=== PATIENT | male | born 1985 | race African-American/Black ===

== ENCOUNTER 2016-11-05 21:04 | Emergency (ER) | payer SELFPAY ==
[~2016-11-05] VITALS: Ht 175.3 cm; Wt 63.5 kg
[~2016-11-05 21:04] MED LIST: ALPRAZOLAM0.25 MG ORAL; ATIVAN1 MG ORAL; ATRIPLA TABLET1 EAC1 ORAL
[2016-11-05] MEDS ORDERED: NKM (21:29)
[2016-11-05 21:30] VITALS: BP 124/84
[2016-11-05] MEDS ORDERED: Ketorolac 30mg Inj IV ONE (21:45)
--- NOTE | 2016-11-05 21:47 | Emergency Room Report ---
History of Present Illness General Chief Complaint: Abdominal Pain Source: Patient Present Illness HPI This is a 31-year-old with a history of metamphetamine abuse. He presents with chief complaint of abdominal pain. Has been on and off for over 2 years. His been to multiple hospitals in his primary care Dr. Workup has been negative per patient. He presents with exacerbation abdominal pain ongoing for last 2 days. Localized the right lower quadrant and radiating to his testicles. Denies any fever chills denies any hematuria. Similar pain in the past. Pain is 10 out of 10. He is brought in by his mother. He had disappear for over a year he came home today. Patient denies any other complaint. No nausea no vomiting. Allergies: Coded Allergies: No Known Allergies (Unverified , 01/26/14) Patient History Past Medical History: see triage record, old chart reviewed Past Surgical History: none Pertinent Family History: none Social History: Reports: drug use, smoking Immunizations: other Reviewed Nursing Documentation: PMH: Agreed, PSxH: Agreed Nursing Documentation-PMH Hx Cancer: No - HIV Review of Systems Eye: Denies: blurred vision, eye pain ENT: Denies: ear pain, nose congestion, throat swelling Respiratory: Denies: cough, shortness of breath Cardiovascular: Denies: chest pain, palpitations Gastrointestinal: Reports: abdominal pain, Denies: diarrhea, nausea, vomiting Musculoskeletal: Denies: back pain, joint pain Skin: Denies: rash Neurological: Denies: headache, numbness Endocrine: Denies: increased thirst, increased urine Hematologic/Lymphatic: Denies: easy bruising All Other Systems: negative except mentioned in HPI Physical Exam Vital Signs Date Time Temp Pulse Resp B/P Pulse Ox O2 Delivery O2 Flow Rate FiO2 11/05/16 21:21 96.1 101 22 124/84 99 Room Air vitals normal Sp02 EP Interpretation: reviewed, normal General Appearance: well appearing, no apparent distress, alert, thin Head: normocephalic, atraumatic Eyes: bilateral eye EOMI, bilateral eye PERRL ENT: hearing grossly normal, normal pharynx Neck: full range of motion, supple, no meningismus Respiratory: chest non-tender, lungs clear, normal breath sounds Cardiovascular #1: regular rate, rhythm, no murmur Gastrointestinal: normal bowel sounds, no mass, no organomegaly, no bruit, non- distended, abnormal bowel sounds - Hyperactive, tenderness - Right lower quadrant Genitourinary: normal inspection, no CVA tenderness, no vertebral tenderness, penis normal, scrotum normal Musculoskeletal: back normal, gait/station normal, normal range of motion Neurologic: alert, oriented x3 Psychiatric: mood/affect normal Skin: warm/dry Medical Decision Making Diagnostic Impression: Primary Impression: Abdominal pain of unknown etiology Additional Impression: Methamphetamine abuse ER Course Followup with your in 7 days. Nitza out in 7 days. Return if worse. With abdominal pain. Labs unremarkable. He has not give a urine sample. I did not palpate a distended bladder. He said he urinated 2 hours prior to arrival. We'll discharge home with parents Lab Results Impression labs unremarkable CT/MRI/US Diagnostic Results CT/MRI/US Diagnostic Results : Imaging Test Ordered: ct abd and pelvis Impression read by radiologist. 3.4 right renal stone Last Vital Signs Date Time Temp Pulse Resp B/P Pulse Ox O2 Delivery O2 Flow Rate FiO2 11/05/16 21:21 96.1 101 22 124/84 99 Room Air Status: improved Disposition: HOME, SELF-CARE Condition: Stable Scripts Ibuprofen* (MOTRIN*) 600 Mg Tablet 600 MG ORAL THREE TIMES A DAY, #30 TAB 0 Refills Prov: MONY BURRIS M.D. 11/06/16 Patient Instructions: Abdominal Pain, Adult Additional Instructions: Followup with your in 2-3 days. Return if worse. MONY BURRIS M.D. Nov 05, 2016 21:47
[2016-11-05 22:16] LABS: BASOPHILS % (AUTO) 1.1 % (0.0-2.0); EOSINOPHILS % (AUTO) 2.9 % (0.0-3.0); LYMPHOCYTES % (AUTO) 42.8 % (20.0-45.0); MEAN CORPUSCULAR HEMOGLOBIN 29.8 PG (27.0-31.0); MEAN CORPUSCULAR VOLUME 90 FL (80-99); MEAN PLATELET VOLUME 8.1 FL (6.5-10.1); MONOCYTES % (AUTO) 9.8 % (1.0-10.0); NEUTROPHILS % (AUTO) 43.3 % (45.0-75.0); PLATELET COUNT 262 K/UL (150-450); RED BLOOD COUNT 4.91 M/UL (4.70-6.10); RED CELL DISTRIBUTION WIDTH 12.7 % (11.6-14.8)
[2016-11-05 22:38] LABS: ANION GAP 15 (5-15); CALCIUM 9.2 mg/dL (8.6-10.2); CARBON DIOXIDE 25 mEQ/L (20-30); CHLORIDE 99 mEQ/L (98-107); GLOMERULAR FILTRATION RATE > 60 mL/min (>60); HEMOLYSIS 5; POTASSIUM 3.8 mEQ/L (3.4-4.9); SODIUM 139 mEQ/L (135-145)
[2016-11-06] MEDS ORDERED: IBUPROFEN600 MG ORAL (00:09)
[2016-11-06 00:28] VITALS: BP 124/87
[2016-11-06 00:30] VITALS: BP 124/87
--- NOTE | 2016-11-06 10:02 | Diagnostic Imaging Report ---
Clinical Indication: Lower abdominal and pelvic pain Technique: No oral contrast utilized, per emergency room physician request IV administration nonionic contrast. Venous phase spiral acquisition obtained through the abdomen and pelvis. Multiplanar reconstructions were generated. Total dose length product 711 mGycm. CTDIvol(s) the mGy Comparison: None Findings: Evaluation of the GI tract is limited in the absence of oral contrast. The distal colon is moderately gas-filled, proximal colon moderately stool filled. No evidence of diverticulosis or diverticulitis. The appendix is not definitely identified, but no findings to suggest acute appendicitis are evident. The stomach is considerably distended. No definite obstructing lesion demonstrated, however. The duodenum is unremarkable. The distal esophagus is unremarkable. The liver is mildly enlarged. No focal abnormalities. Gallbladder, bile ducts, pancreas, spleen, adrenals, left kidney are unremarkable. There is a 4 mm calculus within the interpolar right renal collecting system. No retroperitoneal or mesenteric mass or adenopathy. No pelvic mass or adenopathy. The included lung bases are clear. 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 Impression: Considerable gastric distention. May reflect recent ingestion of considerable food, gastroparesis or gastric outlet obstruction not excludable, however. Possible mild constipation No other acute process 4 mm right intrarenal nonobstructing calculus This agrees with the preliminary interpretation provided overnight by [facility] service. The CT scanner at [facility] is accredited by the [employer] and the scans are performed using protocols designed to limit radiation exposure to as low as reasonably achievable to attain images of sufficient resolution adequate for diagnostic evaluation.
== END 2016-11-06 00:30 | disposition home or self-care (01) ==
LOC: EMR 22:03
DX: R10.9 Unspecified abdominal pain (principal); F15.10 Other stimulant abuse, uncomplicated; F17.200 Nicotine dependence, unspecified, uncomplicated; N20.0 Calculus of kidney
CPT/HCPCS: 36415; 74177; 80048; 85025; 96360; 96374; 99284; J1885; Q9967

== ENCOUNTER 2020-07-07 21:28 | Emergency (ER) | payer MEDICAID ==
[~2020-07-07] VITALS: Ht 177.8 cm; Wt 65.8 kg
[~2020-07-07 21:28] MED LIST changes: +IBUPROFEN600 MG ORAL; +NKM
--- NOTE | 2020-07-07 21:40 | NUR ---
ED Nurse Note: Recieved pt from home, here with c/o syncopasl episode that lasted 10 minutes per pt, states his family witnessed, pt is alone, denies chest pain, sob, fevers, dizziness or weakness or any other complaints or discomforts, pt also states same s/s happend to him 10 years ago and unknown reason, pt is ambulatory with steady gait, immediately gowned and placed on monitoring.
--- NOTE | 2020-07-07 22:00 | NUR ---
ED Nurse Note: Pt resting quietly in bed, on cardiac monitoring, V/S stable, IV site patent and pt refuses IV fluids, sat and explained reason for fluids pt states he only wants lab results no fluids or MD gama informed, will continue to closely monitor, nad noted at this time.
--- NOTE | 2020-07-07 22:02 | Emergency Room Report ---
History of Present Illness General Chief Complaint: Syncope Source: Patient Present Illness HPI Is a 35-year-old male with no past medical history he does have a history of crystal methamphetamine use. He presents with chief complaint of syncope. He said he was eating tonight and felt nauseous. He got up to go the restroom and fell had a syncopal episode. No injury. Complains of generalized weakness. No fever chills. no vomiting. Has not eaten much today. Denies any other complaint. Allergies: Coded Allergies: No Known Allergies (Unverified , 01/26/14) COVID-19 Screening Contact w/high risk pt: No Experienced COVID-19 symptoms?: No COVID-19 Testing performed POULTRY SEXER: No COVID-19 Screening: Negative COVID-19 COVID-19 Testing Source: Patient History Past Medical History: see triage record, old chart reviewed Past Surgical History: none Pertinent Family History: none Social History: Reports: drug use - Crystal meth; Denies: smoking Immunizations: other Reviewed Nursing Documentation: PMH: Agreed; PSxH: Agreed Nursing Documentation-PMH Past Medical History: No Stated History Hx Cancer: No - HIV Review of Systems Eye: Denies: eye pain, blurred vision ENT: Denies: ear pain, nose congestion, throat swelling Respiratory: Denies: cough, shortness of breath Cardiovascular: Denies: chest pain, palpitations Gastrointestinal: Denies: abdominal pain, diarrhea, nausea, vomiting Musculoskeletal: Denies: back pain, joint pain Skin: Denies: rash Neurological: Denies: headache, numbness Endocrine: Denies: increased thirst, increased urine Hematologic/Lymphatic: Denies: easy bruising All Other Systems: negative except mentioned in HPI Physical Exam Vital Signs Date Time Temp Pulse Resp B/P (MAP) Pulse Ox O2 Delivery O2 Flow Rate FiO2 07/07/20 21:30 98.2 118 16 105/66 (79) 99 Room Air Vitals with tachycardia Sp02 EP Interpretation: reviewed, normal General Appearance: well appearing, no apparent distress, alert Head: normocephalic, atraumatic Eyes: bilateral eye PERRL, bilateral eye EOMI ENT: hearing grossly normal, normal pharynx Neck: full range of motion, supple, no meningismus Respiratory: chest non-tender, lungs clear, normal breath sounds Cardiovascular #1: regular rate, rhythm, no murmur Gastrointestinal: normal bowel sounds, non tender, no mass, no organomegaly, no bruit, non-distended Musculoskeletal: back normal, normal range of motion, gait/station normal Psychiatric: mood/affect normal Medical Decision Making Diagnostic Impression: Primary Impression: Syncope Qualified Codes: R55 - Syncope and collapse Additional Impression: Methamphetamine abuse ER Course Patient presents with syncope. No injury. This may be secondary to dehydration since he has not been eating or drinking today. Refused IV fluids. Vital signs are stable here. Is not tachycardic. Labs unremarkable. Will discharge home. EKG Diagnostic Results Rate: normal Rhythm: NSR ST Segments: no acute changes Rhythm Strip Diag. Results EP Interpretation: yes Rate: 96 Rhythm: NSR, no PVC's, no ectopy Last Vital Signs Date Time Temp Pulse Resp B/P (MAP) Pulse Ox O2 Delivery O2 Flow Rate FiO2 07/07/20 21:30 98.2 118 16 105/66 (79) 99 Room Air Status: improved Disposition: HOME, SELF-CARE Condition: Stable Patient Instructions: Syncope Additional Instructions: Abstain from drugs. Follow-up with your doctor in 7 days. Follow-up with rehab. Return if worse. Gunnar Choudhary MD Jul 07, 2020 22:02
[2020-07-07 22:07] LABS: BASOPHILS % (AUTO) 1.1 % (0.0-2.0); HEMATOCRIT 49.5 % (42.0-52.0); HEMOGLOBIN 16.3 G/DL (14.2-18.0); LYMPHOCYTES % (AUTO) 35.8 % (20.0-45.0); MEAN CORPUSCULAR VOLUME 90 FL (80-99); MONOCYTES % (AUTO) 10.1 % (1.0-10.0); PLATELET COUNT 332 K/UL (150-450); RED BLOOD COUNT 5.52 M/UL (4.70-6.10); WHITE BLOOD COUNT 5.9 K/UL (4.8-10.8)
[2020-07-07 22:15] VITALS: BP 121/71
[2020-07-07 22:21] LABS: ANION GAP 8 mmol/L (5-15); BLOOD UREA NITROGEN 13 mg/dL (7-18); CARBON DIOXIDE 30 MMOL/L (21-32); CHLORIDE 101 MMOL/L (98-107); CREATININE 1.4 MG/DL (0.55-1.30); POTASSIUM 3.6 MMOL/L (3.5-5.1); SODIUM 139 MMOL/L (136-145)
[2020-07-07 23:00] VITALS: BP 121/71
--- NOTE | 2020-07-07 23:00 | NUR ---
ER DISCHARGE NOTE: Patient is cleared to be discharged per ERMD, pt is aox4, on room air, with stable vital signs. pt was given dc instructions, pt was able to verbalize understanding, pt id band and iv site removed without complications. pt is able to ambulate with steady gait. pt took all belongings.
--- NOTE | 2020-07-10 20:13 | Cardiology Report ---
APPROVED REPORT EKG Measurement Heart [id number] <Conclusion> Normal sinus rhythm Normal ECG
== END 2020-07-07 23:00 | disposition home or self-care (01) ==
LOC: EMR 22:14
DX: R55 Syncope and collapse (principal); F15.10 Other stimulant abuse, uncomplicated; B20 Human immunodeficiency virus [HIV] disease; R53.1 Weakness
CPT/HCPCS: 36415; 80048; 84484; 85025; 93005; Z7502; 99283